=== PATIENT | female | born 1985 | race African-American/Black ===

== ENCOUNTER 2022-05-24 11:13 | Emergency (ER) | payer OTHER ==
[~2022-05-24] VITALS: Ht 175.3 cm; Wt 69.0 kg
[2022-05-24 11:19] VITALS: BP 125/86
[2022-05-24 14:33] LABS: EOSINOPHILS % 2.5 % (0.0-5.0); HEMOGLOBIN. 13.3 g/dL (12.0-16.0); LYMPHOCYTES % 38.2 % (20.0-50.0); MEAN CORPUSCULAR VOLUME 87.5 fL (81.0-99.0); MONOCYTES % 4.9 % (2.0-8.0); NEUTROPHILS % 53.4 % (40.0-76.0); RED BLOOD CELL COUNT 4.58 mill/uL (4.2-5.4); RED CELL DISTRIBUTION WIDTH 12.5 % (11.6-14.6)
[2022-05-24 14:42] LABS: CHLORIDE 108 mEq/L (98-107)
[2022-05-24 14:52] LABS: B-HCG QUANTITATIVE < 1 mIU/mL (<3)
[2022-05-24 15:34] LABS: PLATELET 97 x1000/uL (130-400)
[2022-05-24] MEDS ORDERED: IBUP-2029 MT (18:14)
== END 2022-05-24 19:04 | disposition home or self-care (01) ==
LOC: ER 11:13
DX: N93.8 Other specified abnormal uterine and vaginal bleeding (principal)
CPT/HCPCS: 36415; 76830; 76856; 80053; 81025; 84702; 85025; 86850; 86900; 99284